=== PATIENT | female | born 1960 | race Caucasian/White ===

== ENCOUNTER 2016-10-08 19:53 | Emergency (ER) | payer OTHER ==
[2016-10-08 20:09] VITALS: TEMP 97.8; BMI 32.2
[2016-10-08] MEDS ORDERED: METHYLPREDNISOLONE 125 MG/2 ML VIAL IM ONE (20:29)
[2016-10-08] MEDS ORDERED: RANITIDINE 150 MG TAB PO ONE (20:29)
--- NOTE | 2016-10-08 21:14 | EDPRACDOC ---
- General Information Chief Complaint: Allergic Reaction Stated Complaint: ?ALLERGIC REACTION Time Seen by Provider: 10/08/16 20:20 Information Source: Patient Mode Of Arrival: Car Home Medications: Home Medications Aspirin [Aspirin EC] 81 mg PO DAILY 10/08/16 Cholecalciferol (Vitamin D3) [Vitamin D3] 1,000 unit PO DAILY 10/08/16 Epinephrine [Epipen 2-Jero] 0.3 mg IM UNK #1 pen.injctr 10/08/16 Methylprednisolone [Medrol] 4 mg PO DAILY #1 tab.ds.pk 10/08/16 Metoprolol Succinate (XL) [Toprol Xl] 100 mg PO HS 10/08/16 Omeprazole 20 mg PO DAILY 10/08/16 Pitavastatin Calcium [Livalo] 2 mg PO DAILY 10/08/16 Triamterene/Hydrochlorothiazid [Triamterene-Hctz 37.5-25 mg Tb] 1 each PO DAILY 10/08/16 Allergies/Adverse Reactions: Allergies Allergy/AdvReac Type Severity Reaction Status Date / Time promethazine Allergy Headache Verified 10/08/16 20:21 - History of Present Illness Medications/Treatment MANAGER OPERATING Medications MANAGER OPERATING (Medication/ Benadryl 25mg 1905 Dose/Time) HPI: PT PRESENTS WITH TONGUE AND LIP TINGLING AFTER SHE ATE [employer]. STATES SHE HAS HAD ANAPHYLAXIS IN THE PAST DUE TO FOOD. STATES SHE HAS AN EPI PEN BUT HAS NEVER USED IT AND IT WAS AT HOME. NO ACUTE DISTRESS NOTED UPON EXAM Exposed to: Food Symptoms started: Minutes Symptoms Developed: Reports: Other Modifying factors: improves with: Diphenhydramine Reaction Location: Reports: Lips, Tongue Relevant History of: Reports: Prior similar episodes Associated Signs and Symptoms: Reports: None - Treatment Prior to ED Arrival Reported Medications/Treatment MANAGER OPERATING Medications MANAGER OPERATING (Medication/ Benadryl 25mg 1905 Dose/Time) ED Past Medical History - History Reviewed Yes Nurses notes reviewed and agree except as marked - Patient Medical History Cardiac History: Reports: Hypertension Psychological History: Denies: Depression Systemic History: Reports: Cancer (right breast) Surgical History: Reports: Hysterectomy - Social Medical History Smoking Status: Never smoker EDM Review of Systems - Review of Systems ROS Negative Except as Marked: Yes All systems reviewed and were negative except as marked - Physical Exam Constitutional: Alert Oriented to: Time, Person, Place Last recorded Vital Signs: Last Vital Signs Temp 97.8 F 10/08/16 20:05 Pulse 84 10/08/16 20:05 Resp 20 10/08/16 20:05 BP 180/88 H 10/08/16 20:05 Pulse Ox 95 10/08/16 20:05 Oxygen Pulse Oxygen Saturation 95 O2 Device Room Air Oxygen Flow Rate Fraction of Inspired Oxygen ( FIO2) - HEENT Head: Normal ( normocephalic) Eye Exam: Normal (PERRL, EOMI, Sclera white) Oropharynx: Normal (Pharynx:Moist without exudate,Gums-no swelling) Tympanic Membrane: Normal Nose: No Symptoms Reported (septum midline) Neck: Normal (FROM, trachea at midline) - Respiratory/Cardiovascular Respiratory: Normal - CTA (BBS clear to auscultation without adventitious sounds ) Cardiovascular: Normal (RRR without murmur, gallop or rub) - GI Auscultation: Normal (NABS) Palpation: Normal (Soft,No rebound or guarding, non distended) Tenderness: Non tender Mattson's Sign: Negative Rectal Exam: Deferred - Musculoskeletal Back: Normal (Non-Tender) Extremities: Normal (Normal tone, Pulses 2+ No cyanosis or edema, FROM) - Integumentary Skin: Normal, Warm, Dry Lymphatics: Normal (no adenopathy) - Neurologic Memory Impaired: Normal Motor Function: Normal (Normal tone, Pulses 2+ No cyanosis or edema, FROM) Cranial Nerve: Normal (CN II-X11 intact sensation, strength 5/5) Cerebellar: Normal Mood Description: Normal Perception: Normal ED Allergic Reaction Exam - HEENT Eye Exam: Normal Tongue: Normal Palate: Normal Buccal Mucosa: Normal Oropharynx: Normal Neck: Normal - Integumentary Skin: Normal Skin Lesion: negative: Macular, Papular, Maculopapular, Nodular, Patch, Plaque, Vesicular, Bullous, Pustular, Ulcer, Urticarial, Petechial, Purpura, Scaly, Other Lymphatics: Normal - Differential Diagnosis Anaphylaxis, Other Decision Time to Discharge: 21:14 - Departure Disposition: Home Condition: Stable Final Diagnosis: Food allergy Instructions: Food Allergy (ED) Education/Counseling Given To: Patient Education/Counseling Given Regarding: Diagnosis, Treatment, Prognosis, Follow Up Referrals: Brenton Domingo MD [Primary Care Provider] - One Week Prescriptions: Epinephrine [Epipen 2-Jero] 0.3 mg IM UNK #1 pen.injctr Methylprednisolone [Medrol] 4 mg PO DAILY #1 tab.ds.pk Additional Instructions: TAKEN ZANTAC 150MG EVERY DAY FOR THE NEXT 5 DAY. TAKE BENADRYL 25MG EVERY 6 HOURS FOR THE NEXT 48 HOURS. TAKE MEDROL DOSE PACK DIRECTED. KEEP EPI PEN WITH YOU AT ALL TIME. RETURN TO THE ED FOR WORSENING SYMPTOMS OR CONCERNS. FOLLOW UP WITH PCP NEXT WEEK.
[2016-10-08 21:57] VITALS: BP 158/77; PULSE 89
== END 2016-10-08 21:54 | disposition home or self-care (01) ==
LOC: ED 19:53
DX: T78.1XXA Other adverse food reactions, not elsewhere classified, initial encounter (principal); X58.XXXA Exposure to other specified factors, initial encounter
CPT/HCPCS: 96372; 99283; J2930; J3490